=== PATIENT | female | born 1955 | race Hispanic/Latino ===

== ENCOUNTER 2019-04-12 13:56 | Outpatient (CLI) | payer OTHER ==
--- NOTE | 2019-04-12 15:23 | RAD ---
LEFT FOOT 3 VIEWS: Date: 04/12/2019 HISTORY: Foot pain. FINDINGS: Mild arthritic changes of first metatarsophalangeal joint and base of the first metatarsal. Prominent calcaneal spurs are seen. Minimal arthritic changes of the ankle joint are seen. No acute bony findi ngs. IMPRESSION: Arthritic changes of the foot. POS: [facility]
== END 2019-04-12 13:57 | disposition home or self-care (01) ==
LOC: BURRAD 13:56
PROVIDERS: ATTEND Family Medicine
DX: M79.672 Pain in left foot (principal); M79.89 Other specified soft tissue disorders; M19.072 Primary osteoarthritis, left ankle and foot

== ENCOUNTER 2019-04-13 13:27 | Outpatient (CLI) | payer OTHER ==
--- NOTE | 2019-04-13 14:11 | ULT ---
Venous duplex sonogram left lower extremity HISTORY: Left leg pain and edema. FINDINGS: The left common femoral vein and greater saphenous junction were evaluated along with the f emoral, deep femoral, popliteal, and posterior tibial veins. There is good color and spectral Doppler flow, compression, and augmentation. IMPRESSION: No sonographic evidence of DVT within the left lower extremity.:
== END 2019-04-13 13:28 | disposition home or self-care (01) ==
LOC: BURULT 13:27
PROVIDERS: ATTEND Family Medicine
DX: M79.89 Other specified soft tissue disorders (principal); M79.672 Pain in left foot

== ENCOUNTER 2024-11-04 17:29 | Emergency (ER) | payer OTHER ==
[2024-11-04 18:13] LABS: #Basophils 0.1 thou/uL (0.0-0.2); #Eosinophils 0.0 thou/uL (0.0-0.7); #Lymphocytes 1.1 thou/uL (1.20-3.40); #Monocytes 0.3 thou/uL (0.11-0.59); #Neutrophils 8.2 thou/uL (1.40-6.50); %Basophils 0.7 % (0.0-1.0); %Eosinophils 0.1 % (0.0-10.0); %Lymphocytes 11.0 % (21.0-51.0); %Monocytes 3.4 % (0.0-10.0); %Neutrophils 84.8 % (42.0-75.0); Hematocrit 34.5 % (36.0-47.0); Hemoglobin 11.3 g/dL (12.0-16.0); Mean Corpuscular Hemoglobin 25.7 pg (27.0-31.0); Mean Corpuscular Volume 78.9 fl (78.0-98.0); Platelet Count 239 10x3/uL (130-400); Red Blood Cell (RBC) Count 4.37 mill/uL (4.20-5.40); White Blood Cell (WBC) Count 9.7 10x3/uL (4.8-10.8)
[2024-11-04] MEDS ORDERED: Carvedilol 6.25 MG TAB ONE (18:34)
[2024-11-04] MEDS ORDERED: Losartan 25 MG TAB ONE (18:34)
[2024-11-04] MEDS ORDERED: Ondansetron PF 4 MG/2 ML Vial ONE (18:34)
[2024-11-04 18:35] LABS: ALT (SGPT) 12 U/L (Less than 34); AST (SGOT) 20 U/L (11-34); Albumin 4.3 g/dL (3.1-4.5); Alkaline Phosphatase 96 U/L (40-110); Anion Gap 17 mmol/L (10-20); BUN (Urea Nitrogen) 11 mg/dL (9.8-20.1); Bilirubin, Total 0.5 mg/dL (0.3-1.2); Calc. Creatinine Clearance 0 mL/min (70-130); Calcium 9.4 mg/dL (7.8-10.44); Carbon Dioxide 25 mmol/L (23-31); Chloride 98 mmol/L (98-107); Globulin 4.0 g/dL (2.4-3.5); Glucose 131 mg/dL (80-115); Potassium 3.8 mmol/L (3.5-5.1); Sodium 136 mmol/L (136-145)
[2024-11-04 19:02] LABS: Troponin I Less than 0.010 ng/mL (< 0.028)
[2024-11-04 19:24] LABS: Glucose, Urine (Dipstick) >=1000 mg/dL (Negative); Leukocyte Negative (Negative); Protein, Urine (Dipstick) 100 mg/dL (Neg-Trace); Specific Gravity, Urine 1.020 (1.005-1.030)
[2024-11-04 19:36] LABS: Bacteria/HPF Rare-Few HPF (None Seen); CAUTI Indications for Culture Pelvic or flank pain; RBC/HPF 0-3 HPF (0-3); WBC/HPF 0-3 HPF (0-3)
[2024-11-04 19:37] LABS: Yeast-Budding Rare HPF (None Seen)
[2024-11-04 19:39] LABS: Urine Culture Reflex No No
== END 2024-11-04 20:12 | disposition home or self-care (01) ==
LOC: BURERS 17:29
DX: R53.1 Weakness (principal); R11.2 Nausea with vomiting, unspecified; I11.0 Hypertensive heart disease with heart failure; I50.9 Heart failure, unspecified; E11.9 Type 2 diabetes mellitus without complications; E78.5 Hyperlipidemia, unspecified; Z79.4 Long term (current) use of insulin; Z79.84 Long term (current) use of oral hypoglycemic drugs; Z79.899 Other long term (current) drug therapy
CPT/HCPCS: 80053; 81001; 83880; 84484; 85025; 93005; 96374; J2405

== ENCOUNTER 2025-01-14 13:24 | Outpatient (CLI) | payer OTHER | END 2025-01-14 13:25 | disposition home or self-care (01) | LOC: BURLAB 13:24 | PROVIDERS: ATTEND Family Medicine | DX: M17.0 Bilateral primary osteoarthritis of knee (principal); M19.041 Primary osteoarthritis, right hand; M19.042 Primary osteoarthritis, left hand; M79.2 Neuralgia and neuritis, unspecified; G89.29 Other chronic pain | CPT/HCPCS: 72040 ==